=== PATIENT | male | born 1995 | race Caucasian/White ===

== ENCOUNTER → 2019-05-20 | Outpatient (CLI) | payer OTHER | LOC: COL.RAD 14:21 | DX: S12.6 Fracture of seventh cervical vertebra (principal) ==

== ENCOUNTER → 2019-07-28 | Outpatient (CLI) | payer OTHER | LOC: COL.RAD 07:14 | DX: S12.601A Unspecified nondisplaced fracture of seventh cervical vertebra, initial encounter for closed fracture (principal) ==